=== PATIENT | female | born 1995 | race Caucasian/White ===

== ENCOUNTER 2021-12-24 16:03 | Inpatient (IN) | payer BC ==
[2021-12-24] MEDS ORDERED: Sodium Chloride 0.9% 10 ML Syringe FLUSH PRN (16:38)
[2021-12-24] MEDS ORDERED: Nalbuphine HCl 10 MG/ 1ML Amp IVPUSH PRN (16:38)
[2021-12-24] MEDS ORDERED: Oxytocin/Lactated Ringers 10 UNIT/1,000 ML BAG IV SCH ×2 (16:45)
[2021-12-24] MEDS ORDERED: Lactated Ringers 1,000 ML IV SCH (16:45)
[2021-12-24] MEDS: Misoprostol 25 MCG (1/4 of 100 MCG) Tab VAG PRN ×2 (17:14→21:22)
[2021-12-24] MEDS: Sodium Chloride 0.9% 10 ML Syringe FLUSH SCH (21:00)
[2021-12-25] MEDS: Misoprostol 25 MCG (1/4 of 100 MCG) Tab VAG PRN (01:37)
[2021-12-25] MEDS: Ondansetron 4 MG/2 ML SDV IVPUSH PRN ×2 (05:40→13:19)
[2021-12-25] MEDS ORDERED: Misoprostol 25 MCG (1/4 of 100 MCG) Tab VAG ONE (05:52)
[2021-12-25] MEDS ORDERED: Bupivacaine/fentaNYL/NS 100 ML Bag EPIDUR PRN (11:08)
[2021-12-25] MEDS ORDERED: diphenhydrAMINE 50 MG/ML SDV IVPUSH PRN (11:08)
[2021-12-25] MEDS ORDERED: fentaNYL 100 MCG/2 ML SDV EPIDUR PRN (11:08)
[2021-12-25] MEDS ORDERED: ePHEDrine 50 MG/ML SDV IVPUSH PRN (11:08)
[2021-12-25] MEDS ORDERED: Lidocaine 1% 50 ML MDV INJECT ONE (14:58)
[2021-12-25] MEDS ORDERED: Lidocaine 1% 50 ML MDV ONE (14:58)
[2021-12-25] MEDS ORDERED: Docusate Sodium 100 MG Cap PO PRN (15:26)
[2021-12-25] MEDS ORDERED: Benzocaine/Menthol 20%-0.5% Spray 78 GM Cannister TOP PRN (15:26)
[2021-12-25] MEDS ORDERED: Acetaminophen 325 MG Tab PO PRN (15:26)
[2021-12-25] MEDS ORDERED: Witch Hazel Medicated Pads 40/Jar TOP PRN (15:26)
[2021-12-25] MEDS ORDERED: Ibuprofen 600 MG Tab PO PRN (15:26)
[2021-12-26] MEDS: Sodium Chloride 0.9% 10 ML Syringe FLUSH SCH (19:27)
== END 2021-12-27 09:45 | disposition home or self-care (01) | DRG 560 ==
LOC: JD.OBCHECK 16:03 → JD.OB 16:09 → JD.OBCHECK 17:34 → JD.OB 17:34 → OBSVTOIN 12-25 16:40 → JD.OB 12-25 17:02
PROVIDERS: ADMIT Obstetrics & Gynecology; ATTEND Obstetrics & Gynecology
PROC: 10E0XZZ Delivery of Products of Conception, External Approach (ICD-10-PCS; principal; 2021-12-25)
PROC: 0HQ9XZZ Repair Perineum Skin, External Approach (ICD-10-PCS; 2021-12-25)
PROC: 10907ZC Drainage of Amniotic Fluid, Therapeutic from Products of Conception, Via Natural or Artificial Opening (ICD-10-PCS; 2021-12-25)
PROC: 3E0R3BZ Introduction of Anesthetic Agent into Spinal Canal, Percutaneous Approach (ICD-10-PCS; 2021-12-25)
PROC: 00HU33Z Insertion of Infusion Device into Spinal Canal, Percutaneous Approach (ICD-10-PCS; 2021-12-25)
DX: O13.4 Gestational [pregnancy-induced] hypertension without significant proteinuria, complicating childbirth (principal); Z37.0 Single live birth; Z3A.37 37 weeks gestation of pregnancy; O70.0 First degree perineal laceration during delivery
CPT/HCPCS: 36415; 59025; 59409; 82565; 82570; 84156; 84450; 84460; 85027; 86592; 86850; 86900; 86901; A9270-GY; J2300; J2405; J2590